=== PATIENT | female | born 1995 | race Caucasian/White ===

== ENCOUNTER 2024-01-31 21:24 | Observation (INO) | payer BC, SELFPAY ==
[2024-01-31 21:59] VITALS: BP 120/67; PULSE 95
[2024-01-31 22:01] VITALS: BP 110/70; PULSE 92
[2024-01-31 22:15] VITALS: BP 108/55; PULSE 102
[2024-01-31 22:19] VITALS: BMI 23.8
--- NOTE | 2024-01-31 22:19 | OBADM ---
This patient, Chante Negron, admitted to the OB room OB Post 115 for observation. Patient/family oriented to hospital policies and general routines including ID bracelet, bed and alarms, visiting hours, pain management, procedures, bathroom and other care routines, personal items, smoking policy, room service/diet, and visiting hours. Patient/Family are encouraged to report perceived risks to care and to ask questions if they do not understand what they are told or what they should do.
[2024-01-31 22:21] LABS: Appearance Urine Clear (Clear); Bilirubin Urine Negative (Negative); Blood Urine Negative (Negative); Color Urine Yellow (Yellow); Glucose Urine UA 2+ mg/dL (Negative); Ketones Urine Negative (Negative); Leukocyte Esterase Ur Negative LEU/UL (Negative); Nitrate Urine Negative (Negative); Protein Urine Negative (Negative); Specific Grav Ur 1.011 (1.001-1.035); Urobilinogen Urine 0.2 mg/dL (<2.0); pH Urine 6.5 (5.0-9.0)
[2024-01-31 22:22] LABS: Add Urine Microscopic? NO
[2024-01-31 22:30] VITALS: BP 106/62; PULSE 81
[2024-01-31 22:45] VITALS: BP 114/76; PULSE 92
[2024-01-31 23:03] LABS: Basophils Absolute Auto 0.1 K/mm3 (0.0-0.1); Basophils Percent Auto 0.3 % (0.2-1.2); Eosinophils Absolute Auto 0.1 K/mm3 (0-0.3); Eosinophils Percent Auto 0.5 % (0-4.4); Hematocrit 35.1 % (37.0-47.0); Hemoglobin 11.4 g/dL (12.0-15.0); Immature Granulocyte Absolute 0.06 K/mm3 (0.00-0.031); Immature Granulocyte Percent A 0.4 % (0-0.5); Lymphocytes Absolute Auto 2.25 K/mm3 (0.9-3.2); Lymphocytes Percent Auto 14.8 % (18.3-44.2); Mean Corpuscular HGB Conc 32.5 g/dl (32-36); Mean Corpuscular Hemoglobin 30.2 pg (26-34); Mean Corpuscular Volume 92.9 fl (80-100); Mean Platelet Volume 9.7 fl (7.4-10.4); Monocytes Absolute Auto 0.8 K/mm3 (0.1-0.6); Platelet Count Result 378 k/mm3 (150-375); Red Blood Count 3.78 M/mm3 (4.2-5.4); Red Cell Distribution Width 13.1 % (11.5-14.5); White Blood Count 15.2 K/mm3 (4.5-10.0)
[2024-01-31] MEDS: CYCLOBENZAPRINE HCL 10 MG TABLET PO (23:18)
--- NOTE | 2024-02-11 08:39 | P.PNOB_ITS ---
OB - Triage/Final Diagnosis Visit Information Date of evaluation: 01/31/24 Reason for evaluation: other (back pain) Comments/Additional reasons for admission: I have assessed the risk for this patient, Chante Negron, and determined that she would benefit from observation care. Evaluation Laboratory results: Laboratory Tests 01/31/24 01/31/24 22:15 22:53 WBC 15.2 H RBC 3.78 L Hgb 11.4 L Hct 35.1 L MCV 92.9 MCH 30.2 MCHC 32.5 RDW 13.1 Plt Count 378 H MPV 9.7 Immature Gran % (Auto) 0.4 Neut % (Auto) 79.0 H Lymph % (Auto) 14.[address] [place] % (Auto) 5.0 Eos % (Auto) 0.5 Baso % (Auto) 0.3 Lymph # (Auto) 2.25 [place] # (Auto) 0.8 H Eos # (Auto) 0.1 Baso # (Auto) 0.1 Abs Immat Gran (auto) 0.06 H Absolute Neuts (auto) 12.0 H Absolute Nucleated RBC 0.000 Nucleated RBC % 0.0 Urine Color Yellow Urine Appearance Clear Urine pH 6.5 Ur Specific [place] 1.011 Urine Protein Negative Urine Glucose (UA) 2+ H Urine Ketones Negative Ur Blood (Man) Negative Urine Nitrate Negative Urine Bilirubin Negative Urine Urobilinogen 0.2 Leukocyte Esterase Rfl Negative Comments: Pt evaluated on unit by RN. Plan of care discussed with CNLisa. FHTs reassuring. VSS. No evidence of active labor or ROM.
== END 2024-01-31 23:30 | disposition home or self-care (01) ==
PROVIDERS: Advanced Practice Midwife; Admitting Provider Obstetrics & Gynecology; Visit Provider Obstetrics & Gynecology
DX: O99.891 Other specified diseases and conditions complicating pregnancy (principal); M54.9 Dorsalgia, unspecified; Z3A.26 26 weeks gestation of pregnancy
CPT/HCPCS: 36415; 81003; 85025; A9270; G0378; G0379

== ENCOUNTER 2024-04-23 00:35 | Inpatient (IN) | payer BC, SELFPAY ==
[2024-04-23] VITALS (86 sets, daily range): BP systolic 61–166; BP diastolic 30–127; PULSE 64–208; RESP 14–18; TEMP 36.3–37.1; O2SAT 96–100; BMI 29.4
[2024-04-23 01:23] LABS: Basophils Absolute Auto 0.1 K/mm3 (0.0-0.1); Basophils Percent Auto 0.4 % (0.2-1.2); Eosinophils Percent Auto 0.3 % (0-4.4); Hemoglobin 11.3 g/dL (12.0-15.0); Immature Granulocyte Absolute 0.05 K/mm3 (0.00-0.031); Immature Granulocyte Percent A 0.4 % (0-0.5); Lymphocytes Absolute Auto 2.44 K/mm3 (0.9-3.2); Lymphocytes Percent Auto 17.4 % (18.3-44.2); Mean Corpuscular HGB Conc 34.2 g/dl (32-36); Mean Corpuscular Hemoglobin 30.6 pg (26-34); Mean Corpuscular Volume 89.4 fl (80-100); Mean Platelet Volume 12.3 fl (7.4-10.4); Monocytes Absolute Auto 1.1 K/mm3 (0.1-0.6); Monocytes Percent Auto 7.5 % (2.6-8.5); Neutrophils Absolute Auto 10.4 K/mm3 (1.3-6.7); Platelet Count Result 201 k/mm3 (150-375); Red Blood Count 3.69 M/mm3 (4.2-5.4); Red Cell Distribution Width 12.8 % (11.5-14.5)
--- NOTE | 2024-04-23 01:55 | LDADM ---
This patient, Chante Negron, was admitted to Labor/Delivery/Recovery 105 on 04/23/24 at 00:35. Plans for labor, pain management and were discussed with patient. Patient/family oriented to hospital policies and general routines including ID bracelet, bed and alarms, visiting hours, pain management, procedures, bathroom and other care routines, personal items, smoking policy, room service/diet and guest tray routines, security routines, and visiting hours. Patient/Family are encouraged to report perceived risks to care and to ask questions if they do not understand what they are told or what they should do. See OBIX for further documentation.
[2024-04-23 02:17] LABS: HIV 1/2 Ab P24 Ag Result Negative (Negative)
[2024-04-23 02:18] LABS: Rapid Plasma Reagin Non-Reactive (NonReactive)
--- NOTE | 2024-04-23 05:12 | PM.IMHP ---
H&P: HPI History of Present Illness Date/Time: 04/23/24 05:12 Chief Complaint: Ruptured membranes at term Narrative: 29-year-old 1 para 0 whose last menstrual pre was 07/22/2023, EDC is 05/08/2024, confirmed by 10 week ultrasound presents at 38 weeks gestation with spontaneous rupture membranes. She is negative for group B strep in her appears uncomplicated. She does state that she would like an epidural. Contractions were irregular at the moment and she is agreeable to starting Pitocin PMFSH Family History Family History Grandparent Diabetes mellitus Father Diabetes mellitus Social History Social History Smoking status: Never smoker Substance use: never Do You Feel Safe in your Home?: No Lack of Transportation: No Lack of Food: Sometimes True Current Housing: I Have Housing Concerned About Future Housing: No Difficulty Paying Gas/Electric Bills: No Difficulty Paying for Meds: No Currently Unemployed: No Education: Master's Degree or Higher Difficulty w/ Childcare or Family Care: No Spiritual care concerns: No Meds Home Medications and Allergies Home Medications Medication Instructions Recorded Confirmed Type prenat.vits,paco,hap-sctx-uwspq 1 tablet 04/10/24 History Allergies Allergy/AdvReac Type Severity Reaction Status Date / Time No Known Allergies Allergy Verified 04/23/24 03:28 Vital Signs Vital Signs - 24 hr 04/23/24 03:11 04/23/24 04:00 04/23/24 05:01 Temperature 98 F Pulse Rate 72 64 77 Blood Pressure 108/77 108/65 130/78 Oxygen Delivery 04/23/24 01:49 Temperature Pulse Rate Blood Pressure Oxygen Delivery Room Air Exam Const: General: cooperative, healthy appearing and comfortable Nutritional Appearance: average body habitus Orientation/consciousness: oriented to person, oriented to place and oriented to time Resp: Effort & Inspection: normal respiratory effort Cardio: Rate: regular rate Rhythm: regular rhythm Heart sounds: S1 normal heart sound present and S2 normal heart sound present GI: Inspection: normal to inspection ( gravid soft uterus) : External Female Exam: normal external appearance Speculum Exam - Vagina: normal appearance of the vagina Speculum Exam - Cervix: normal appearance of the cervix ( cervix 1cm. UCs irregular. FHTs reassuring) H&P: Results Labs Labs: Short CBC 04/23/24 Range/Units 01:17 WBC 14.0 H (4.5-10.0) K/mm3 Hgb 11.3 L (12.0-15.0) g/dL Hct 33.0 L (37.0-47.0) % Plt Count 201 (150-375) k/mm3 Assessment and Plan Assessment and plan (1) Term : Code(s): Z34.90 - Encounter for supervision of normal , unspecified, unspecified trimester Status: Acute (2) Spontaneous rupture of amniotic membranes: Status: Acute Plan spontaneous vaginal delivery expected. She has an epidural candidate. She is agreeable to start Pitocin
[2024-04-23] MEDS: LACTATED RINGERS 1,000 ML 125 ML IV CONT ×4 (05:22→11:01)
[2024-04-23] MEDS: OXYTOCIN 30 UNITS/NS 500 ML 30 UNITS/500 ML BAG 6 UNITS IV CONT (05:22)
--- NOTE | 2024-04-23 07:31 | WPDANESEPP ---
Anes - Eval Pre Procedure Procedure: labor epidural Date/Time: 04/23/24 07:31 Surgeon: jose Preop Diagnosis: pain during labor Pre Op Diagnosis: Leaking fluid Patient Data Age: 29 Gender: F Height: 1.57 m Weight: 73 kg Last Vital Signs Temp 36.9 C 04/23/24 06:30 Pulse 141 H 04/23/24 06:01 BP 128/70 04/23/24 06:01 O2 Del Method Room Air 04/23/24 01:49 Allergies Allergy/AdvReac Type Severity Reaction Status Date / Time No Known Allergies Allergy Verified 04/23/24 03:28 Home Medications Medication Instructions Recorded Confirmed Type prenat.vits,paco,qdu-yozr-zrcbw 1 tablet 04/10/24 History Laboratory Tests 04/23/24 01:17 WBC 14.0 H K/mm3 (4.5-10.0) RBC 3.69 L M/mm3 (4.2-5.4) Hgb 11.3 L g/dL (12.0-15.0) Hct 33.0 L % (37.0-47.0) MCV 89.4 fl (80-100) MCH 30.6 pg (26-34) MCHC 34.2 g/dl (32-36) RDW 12.8 % (11.5-14.5) Plt Count 201 k/mm3 (150-375) MPV 12.3 H fl (7.4-10.4) Immature Gran % (Auto) 0.4 % (0-0.5) Neut % (Auto) 74.0 H % (45.5-73.1) Lymph % (Auto) 17.4 L % (18.3-44.2) [place] % (Auto) 7.5 % (2.6-8.5) Eos % (Auto) 0.3 % (0-4.4) Baso % (Auto) 0.4 % (0.2-1.2) Lymph # (Auto) 2.44 K/mm3 (0.9-3.2) [place] # (Auto) 1.1 H K/mm3 (0.1-0.6) Eos # (Auto) 0.0 K/mm3 (0-0.3) Baso # (Auto) 0.1 K/mm3 (0.0-0.1) Abs Immat Gran (auto) 0.05 H K/mm3 (0.00-0.031) Absolute Neuts (auto) 10.4 H K/mm3 (1.3-6.7) Absolute Nucleated RBC 0.000 K/mm3 (0.0-0.012) Nucleated RBC % 0.0 % (0.0-0.2) RPR Non-reactive (NonReactive) HIV 1&2 Ab/P24 Ag 4thGn Negative (Negative) Blood Type O Positive Antibody Screen Negative Patient hx anesthesia problems: none Family hx anesthesia problems: none Results Review: All pre-operative results and documents have been reviewed as part of the pre-operative evaluation. [facility] Family History Family History Grandparent Diabetes mellitus Father Diabetes mellitus Social History Social History Smoking status: Never smoker Substance use: never Do You Feel Safe in your Home?: No Lack of Transportation: No Lack of Food: Sometimes True Current Housing: I Have Housing Concerned About Future Housing: No Difficulty Paying Gas/Electric Bills: No Difficulty Paying for Meds: No Currently Unemployed: No Education: Master's Degree or Higher Difficulty w/ Childcare or Family Care: No Spiritual care concerns: No Exam Day of Procedure 04/23/24 07:31
[2024-04-23] MEDS: PHENYLEPHRINE 1,000 MCG/10 ML SYRINGE 100 MCG IV PUSH (08:00)
--- NOTE | 2024-04-23 08:55 | PM.OBPNLAB ---
Pain Control Date/time seen: 04/23/24 08:55 Pain control: tolerating well and epidural Comments: bedside ultrasound reveals this baby is breech she is 6cm
--- NOTE | 2024-04-23 08:55 | WPDHPUPDATE1 ---
History and Physical Update Update Date/Time: 04/23/24 08:55 History and Physical has been reviewed, including an updated exam of the patient. There are NO changes in the patient's condition. Risks, benefits, and alternatives have been discussed and questions answered. Patient agrees to proceed with procedure.
[2024-04-23] MEDS: ACETAMINOPHEN 500 MG TABLET 1000 MG PO (09:02)
[2024-04-23] MEDS: ONDANSETRON INJ 4 MG/2 ML VIAL IV PUSH (09:03)
[2024-04-23] MEDS: FAMOTIDINE 20 MG/2 ML VIAL IV PUSH (09:03)
[2024-04-23] MEDS: AZITHROMYCIN 500 MG/NS 250 ML 500 MG/250 ML BAG 250 MG IVPB (09:15)
--- NOTE | 2024-04-23 09:54 | WPDANESEPPF ---
Anes - Initial Pre Proc Eval Procedure: Operation Date: 04/23/24 09:30 Proposed Procedures p Section - Chad Carney MD Date/Time: 04/23/24 09:54 Surgeon: Timmy Horton MD Pre Op Diagnosis: Leaking fluid Patient Data Age: 29 Gender: F Height: 1.57 m Weight: 73 kg Last Vital Signs Temp 36.9 C 04/23/24 06:30 Pulse 94 04/23/24 09:30 BP 123/53 L 04/23/24 09:45 Pulse Ox 99 04/23/24 09:51 O2 Del Method Room Air 04/23/24 01:49 Allergies Allergy/AdvReac Type Severity Reaction Status Date / Time No Known Allergies Allergy Verified 04/23/24 03:28 Home Medications Medication Instructions Recorded Confirmed Type prenat.vits,paco,ddx-puqc-jzwgy 1 tablet 04/10/24 History Laboratory Tests 04/23/24 01:17 WBC 14.0 H K/mm3 (4.5-10.0) RBC 3.69 L M/mm3 (4.2-5.4) Hgb 11.3 L g/dL (12.0-15.0) Hct 33.0 L % (37.0-47.0) MCV 89.4 fl (80-100) MCH 30.6 pg (26-34) MCHC 34.2 g/dl (32-36) RDW 12.8 % (11.5-14.5) Plt Count 201 k/mm3 (150-375) MPV 12.3 H fl (7.4-10.4) Immature Gran % (Auto) 0.4 % (0-0.5) Neut % (Auto) 74.0 H % (45.5-73.1) Lymph % (Auto) 17.4 L % (18.3-44.2) [place] % (Auto) 7.5 % (2.6-8.5) Eos % (Auto) 0.3 % (0-4.4) Baso % (Auto) 0.4 % (0.2-1.2) Lymph # (Auto) 2.44 K/mm3 (0.9-3.2) [place] # (Auto) 1.1 H K/mm3 (0.1-0.6) Eos # (Auto) 0.0 K/mm3 (0-0.3) Baso # (Auto) 0.1 K/mm3 (0.0-0.1) Abs Immat Gran (auto) 0.05 H K/mm3 (0.00-0.031) Absolute Neuts (auto) 10.4 H K/mm3 (1.3-6.7) Absolute Nucleated RBC 0.000 K/mm3 (0.0-0.012) Nucleated RBC % 0.0 % (0.0-0.2) RPR Non-reactive (NonReactive) HIV 1&2 Ab/P24 Ag 4thGn Negative (Negative) Blood Type O Positive Antibody Screen Negative Patient hx anesthesia problems: none Family hx anesthesia problems: none Results Review: All pre-operative results and documents have been reviewed as part of the pre-operative evaluation. [facility] Family History Family History Grandparent Diabetes mellitus Father Diabetes mellitus Social History Social History Smoking status: Never smoker Substance use: never Do You Feel Safe in your Home?: No Lack of Transportation: No Lack of Food: Sometimes True Current Housing: I Have Housing Concerned About Future Housing: No Difficulty Paying Gas/Electric Bills: No Difficulty Paying for Meds: No Currently Unemployed: No Education: Master's Degree or Higher Difficulty w/ Childcare or Family Care: No Spiritual care concerns: No Anes - Eval Final PreProcedure Day of Procedure 04/23/24 09:54 Patient weight: normal Heart: regular rate and rhythm Lungs: clear to auscultation Airway: Mallampati scale class II Neurological: alert and oriented Last oral intake: >/= 8 hours ASA classification: II Emergent: no Anesthetic plan: proceed Anesthesia type and monitoring: regional epidural and standard monitoring Results Review: All pre-operative results and documents have been reviewed as part of the pre-operative evaluation. Informed Consent: The patient's anesthetic plan and its attendant risks and benefits were discussed with the patient/family/POA. Questions were solicited and answers provided to the satisfaction of the patient/family/POA.
[2024-04-23] MEDS: ceFAZolin 2 GM/D5W 50 ML 2 GM/50 ML BAG IVPB (10:10)
[2024-04-23] MEDS: KETOROLAC 15 MG/ML VIAL (*BKC) IV PUSH ×3 (10:49→20:55)
--- NOTE | 2024-04-23 10:54 | W.PM.OBCSD ---
OB - Delivery Note Procedure Delivery date: 04/23/24 Pre-op diagnosis: Breech Presentation and Other (Reach) Post-op Diagnosis: Same Induction method: None Delivery monitor: External FHT and External Uterine Prior to decision for section, ACOG/SM labor guidelines were considered and discussed with the patient and staff. Decision made to proceed with the section.: Yes Procedure Performed: Primary Surgeon: Chad Carney MD Anesthesia type: Epidural Description of Procedure/Findings: patient was admitted with spontaneous rupture movement prior to admission. She was a known breech and she progressed to 1cm to 6 and the breech was noted. After obtained informed consent she was prepped draped taken to the back she had. She had previously had epidural anesthesia. Under excellent epidural anesthesia the abdomen was entered in Pfannenstiel fashion progressive layers of fascia. Fascia incised midline cured upward outward fashion bilaterally. Underlying muscles sharply dissected. Parietal peritoneum below by Elizabeth clamps and by sharp dissection carried superiorly and inferiorly to the dome of the bladder. Bladder blade placed bladder flap formed. Bladder blade returned. A low-transverse incision made the breech delivered to maternal right assure arms were delivered medially flexed and the head delivered in flexed position. Patient had cord clamped and cut and given Apgars of 8 and 8 at 1 and 5minutes. Placenta then delivered intact manually after drawn cord blood. Uterus was delivered the abdomen. After assuring no membranes remained the uterus, the uterus closed with continuous running locking 0 Vicryl from lateral edge to lateral edge. This followed by 2nd imbricating running locking 0 Vicryl from lateral edge to lateral edge. Hemostasis was assured and ovaries and tubes appeared within normal limits. The uterus returned to the abdomen. The hysterotomy incision inspected 1 last time noted be hemostatic. Laps removed and accounted for. The fascia closed with continuous running 0 Vicryl from lateral edge to lateral edge. Irrigation subcutaneous layer. The skin closed with 4 Monocryl glue. Quantitative blood loss was 345cc. All sponge, needle, instrument counts were correct. There were no immediate complications Specimen: No Estimated Blood Loss: 345 Drains: No Packing: No Pathology: None sent Complications: No immediate complications Condition: Stable Baby Date of : 04/23/24 Time of : 10:31 Gestational Age by Date: 37 gender: Male Weight (pounds): 5 Weight (ounces): 15 presentation: barry breech position: Right Sacrum Anterior Placenta delivery description: Manual Removal Cord Vessel Description: 3 Vessels score one minute: 8 score five minutes: 8
--- NOTE | 2024-04-23 10:58 | PM.DS ---
DS: Admitting Diagnosis Discharge Date 04/25/24 Admitting Diagnosis term /breech presentation DS: Discharge Diagnosis Discharge Diagnosis (1) Term : Code(s): Z34.90 - Encounter for supervision of normal , unspecified, unspecified trimester Status: Acute (2) Breech presentation: Code(s): O32.1XX0 - Maternal care for breech presentation, not applicable or unspecified Status: Acute DS: Summary Hospital Course Reason for hospitalization: patient was admitted at 38 weeks gestation with spontaneous rupture membranes at 38 weeks on 04/23/2024. Hospital Course: The patient was noted to be breech by bedside ultrasound. She is offered low-transverse section. After obtaining informed consent she was taken to the back and delivered without difficulty. Her hospital course was unremarkable. She remained afebrile. She was up, voiding without difficulty, eating a regular diet, ambulating, breast-feeding, and generally without complaints. Time Spent with Patient Time attestation: Total time spent providing and/or coordinating discharge services: Exam Const: General: cooperative, healthy appearing and comfortable Nutritional Appearance: average body habitus Orientation/consciousness: oriented to person, oriented to place and oriented to time Resp: Effort & Inspection: normal respiratory effort Cardio: Rate: regular rate Rhythm: regular rhythm Heart sounds: S1 normal heart sound present and S2 normal heart sound present GI: Inspection: normal to inspection and incision ( Wound is clean dry and intact) DS: Data Data Completed and Pending Labs on day of discharge: Labs from last 24 hours 04/23/24 01:17 WBC 14.0 H RBC 3.69 L Hgb 11.3 L Hct 33.0 L MCV 89.4 MCH 30.6 MCHC 34.2 RDW 12.8 Plt Count 201 MPV 12.3 H Immature Gran % (Auto) 0.4 Neut % (Auto) 74.0 H Lymph % (Auto) 17.4 L [place] % (Auto) 7.5 Eos % (Auto) 0.3 Baso % (Auto) 0.4 Lymph # (Auto) 2.44 [place] # (Auto) 1.1 H Eos # (Auto) 0.0 Baso # (Auto) 0.1 Abs Immat Gran (auto) 0.05 H Absolute Neuts (auto) 10.4 H Absolute Nucleated RBC 0.000 Nucleated RBC % 0.0 RPR Non-reactive HIV 1&2 Ab/P24 Ag 4thGn Negative Blood Type O Positive Antibody Screen Negative Discharge Plan Discharge Attending physician on discharge: Chad Omalley Discharging Clinician: Chad Omalley Patient Disposition: Home, Self-Care Activity: may shower, no straining and pelvic rest Diet: heart healthy Wound Care Instructions: follow printed instructions Patient Instructions: Antibiotic Form Stand Alone Forms: General Discharge Information Follow-up/Referrals: Timmy Horton MD [Physician] - Discharge Medications: New hydrocodone-acetaminophen 5-325 mg tablet 1 tablet PO Q4H PRN (Reason: pain) Qty: 30 0RF Continued #2 Tablet 1 tablet Date of admission: 04/23/24 00:35 Primary Care Provider: UNKNOWN,DOCTOR Admitting Provider: Timmy Horton Attending physician on admission: Timmy Horton Condition: Stable
[2024-04-23] MEDS: HYDROmorphone HCL INJ (*CRX) 1 MG/ML SYR 0.5 MG IV PUSH (11:55)
[2024-04-23] MEDS: OXYTOCIN 30 UNITS/NS 500 ML 30 UNITS/500 ML BAG 125 UNITS IV CONT (13:29)
--- NOTE | 2024-04-23 13:41 | OBPPTRN ---
1316-Patient transferred to post room #281 via stretcher. Support person present. Oriented to unit, room, information board, rooming in, admission packet and security measures. Patient verbalizes understanding.
[2024-04-23] MEDS: ACETAMINOPHEN 325 MG TABLET 650 MG PO ×2 (14:15→20:56)
[2024-04-23] MEDS: SIMETHICONE 80 MG TAB.CHEW PO (14:16)
[2024-04-23] MEDS: LIDOCAINE 5% PATCH 1 PATCH TRANSDERM (14:17)
--- NOTE | 2024-04-23 14:30 | PC.NURSE ---
Introductions were made, then consulted with patient to assess needs related to . Encouraged understanding of the benefits of skin to skin, stimulating with massage touch, changing positions to encourage wakefulness, how to watch for early feeding cues, responsive feeding, feeding on demand (aiming for 8-12 times in 24 hours, about every 2-3 hours), milk production, building/maintaining a milk supply, duration of feeding, signs of adequate intake/output and how to record on the feeding sheet. Reviewed positioning and ear, shoulder, hip alignment, supporting the breast to facilitate a deep latch, asymmetrical latch (off-center), leading with the chin with a big, open, wide gape and body close to mother. Infant made attempts on the left breast in football, cross cradle and laid-back position, feeding not achieved at this time. Nipple shield was utilized at this time. Infant remains unsuccessful with disoriented suck. Infant to remain skin to skin with mother. Education given to the mother of how to visualize the suckling (with good rocking jaw motion), swallows (dropping of the lower jaw) and how to listen for drinking at the breast (the ka sound). was unable to maintain latch. Reviewed comfort measures of healing with a warm, wet washcloth to rinse breast, then leave open to air-dry, good handwashing when or touching the breast/nipples to prevent infection. Mother voiced understanding of skin to skin, stimulating with massage touch, responsive feedings, hand expressed colostrum, talking to to encourage if it has been 2 -2.5 hours since the start of the last , to call if infant does not latch, or if there is discomfort with . Parents voiced understanding of information, demonstrated learning and will call if there is a request for assistance. Reported to the Primary RN.
--- NOTE | 2024-04-23 17:31 | PC.NURSE ---
Called to patients room for assistance latching infant. Unable to maintain a good latch. attempts but has poor suck and will not remain latched. Dr. Kirkland consulted regarding infants lack of feedings during life. Blood sugar taken and resulted as 31. Serum drawn resulting at 38. 1.5ml Glucose gel given with 20ml of Similac formula. Report given to RN. RN will recheck blood sugar at 17:45.
[2024-04-23] MEDS: DOCUSATE SODIUM 100 MG CAPSULE PO (17:34)
[2024-04-23] MEDS: DEXTROSE 5%/0.45% SOD CHL 1,000 ML 125 ML IV CONT (19:14)
[2024-04-24] MEDS: KCL 20 MEQ/D5/0.45% SOD CHL 1,000 ML 125 ML IV CONT (03:09)
[2024-04-24] MEDS: KETOROLAC 15 MG/ML VIAL (*BKC) IV PUSH ×2 (03:23→09:30)
[2024-04-24] MEDS: ACETAMINOPHEN 325 MG TABLET 650 MG PO ×4 (03:23→21:08)
[2024-04-24 04:02] VITALS: BP 98/59; PULSE 69; RESP 12; TEMP 36.6; O2SAT 96
--- NOTE | 2024-04-24 05:55 | PM.OBPNVD ---
OB - PN: Subj Subjective Date/time seen: 04/24/24 05:55 Patient comments: no complaints and pain well controlled baby status: doing well OB - PN: Obj Data Labs 04/23/24 01:17 OB - PN A/P Plan day: 1 Plan: routine care Time Spent With Patient Time: Total time spent is greater than 50% in coordination of care (as documented) at patient's floor/unit and/or counseling patient: Time with patient: less than 15 minutes Exam Const: General: cooperative, healthy appearing and comfortable Nutritional Appearance: average body habitus Orientation/consciousness: oriented to person, oriented to place and oriented to time HENMT: Head: normal to inspection Resp: Effort & Inspection: normal respiratory effort Cardio: Rate: regular rate Rhythm: regular rhythm Heart sounds: S1 normal heart sound present and S2 normal heart sound present GI: Inspection: normal to inspection and incision (cdi)
[2024-04-24 06:06] LABS: Basophils Percent Auto 0.2 % (0.2-1.2); Eosinophils Percent Auto 0.2 % (0-4.4); Hematocrit 31.7 % (37.0-47.0); Hemoglobin 10.5 g/dL (12.0-15.0); Immature Granulocyte Absolute 0.07 K/mm3 (0.00-0.031); Immature Granulocyte Percent A 0.4 % (0-0.5); Lymphocytes Absolute Auto 1.88 K/mm3 (0.9-3.2); Lymphocytes Percent Auto 12.1 % (18.3-44.2); Mean Corpuscular HGB Conc 33.1 g/dl (32-36); Mean Corpuscular Hemoglobin 30.7 pg (26-34); Mean Corpuscular Volume 92.7 fl (80-100); Mean Platelet Volume 12.8 fl (7.4-10.4); Monocytes Absolute Auto 1.1 K/mm3 (0.1-0.6); Monocytes Percent Auto 6.7 % (2.6-8.5); Neutrophils Absolute Auto 12.5 K/mm3 (1.3-6.7); Neutrophils Percent Auto 80.4 % (45.5-73.1); Platelet Count Result 158 k/mm3 (150-375); Red Blood Count 3.42 M/mm3 (4.2-5.4); Red Cell Distribution Width 13.1 % (11.5-14.5); White Blood Count 15.6 K/mm3 (4.5-10.0)
[2024-04-24 07:30] VITALS: BP 130/62; PULSE 78; RESP 18; TEMP 36.8; O2SAT 99
--- NOTE | 2024-04-24 08:19 | WPDANLDPN2 ---
Anes-Prog Note L&D Date/Time: 04/24/24 08:19 Comfortable throughout: labor, delivery and section Neuraxial method: epidural Epidural/Spinal procedure site: clean & non-tender Neuro status: Neuro function grossly intact. Cardiovascular status: normal Respiratory status: normal Airway patency: baseline Mental status: baseline Post-Op hydration status: normal Vital Signs: Last Vital Signs Temp 36.6 C 04/24/24 04:02 Pulse 69 04/24/24 04:02 Resp 12 04/24/24 04:02 BP 98/59 L 04/24/24 04:02 Pulse Ox 96 04/24/24 04:02 O2 Del Method Room Air 04/23/24 13:00 Pain score (VAS): 1 I/O: Intake & Output 04/23/24 04/24/24 04/24/24 23:59 07:59 15:59 Intake Total 350 Output Total 350 1675 Balance 0 -1675 Post-procedural complaints: none Patient feedback: Patient satisfied with anesthetic care.
--- NOTE | 2024-04-24 08:20 | WPDANLDNPN2 ---
Anes-Prog Note L&D-Neuraxial Date/Time: 04/24/24 08:20 Neuraxial medications: epidural PF morphine Opiod-related complaints: none Patient feedback: Patient satisfied with post-operative pain management.
[2024-04-24] MEDS: MULTIVIT/MIN/PREN/FOL AC/IRON TABLET 1 TAB PO (09:30)
[2024-04-24] MEDS: DOCUSATE SODIUM 100 MG CAPSULE PO ×2 (09:31→15:33)
[2024-04-24] MEDS: SIMETHICONE 80 MG TAB.CHEW PO ×3 (09:31→15:33)
[2024-04-24] MEDS: LIDOCAINE 5% PATCH 1 PATCH TRANSDERM (15:34)
[2024-04-24] MEDS: IBUPROFEN 600 MG TABLET PO ×2 (15:34→21:08)
[2024-04-24 20:00] VITALS: BP 125/75; PULSE 81; RESP 18; TEMP 36.4; O2SAT 98
[2024-04-24] MEDS: HYDROcodone/acetaminophen (*CRX) 5-325 MG TABLET 1 TAB PO (21:08)
[2024-04-25] MEDS: IBUPROFEN 600 MG TABLET PO ×4 (02:56→21:32)
[2024-04-25] MEDS: ACETAMINOPHEN 325 MG TABLET 650 MG PO ×4 (02:56→21:31)
--- NOTE | 2024-04-25 08:00 | PM.OBPNVD ---
OB - PN: Subj Subjective Date/time seen: 04/25/24 08:00 Patient comments: no complaints and pain well controlled baby status: doing well and nursing well OB - PN: Obj Data Labs 04/24/24 03:51 OB - PN A/P Plan day: 2 Plan: routine care, discharge home and follow up 6 weeks (4) Time Spent With Patient Time: Total time spent is greater than 50% in coordination of care (as documented) at patient's floor/unit and/or counseling patient: Time with patient: less than 15 minutes Exam Const: General: cooperative, healthy appearing and comfortable Nutritional Appearance: average body habitus Orientation/consciousness: oriented to person, oriented to place and oriented to time HENMT: Head: normal to inspection Resp: Effort & Inspection: normal respiratory effort Cardio: Rate: regular rate Rhythm: regular rhythm Heart sounds: S1 normal heart sound present and S2 normal heart sound present GI: Inspection: normal to inspection
[2024-04-25 08:15] VITALS: BP 105/77; PULSE 74; RESP 18; TEMP 36.9; O2SAT 100
[2024-04-25] MEDS: SIMETHICONE 80 MG TAB.CHEW PO ×3 (09:17→15:58)
[2024-04-25] MEDS: MULTIVIT/MIN/PREN/FOL AC/IRON TABLET 1 TAB PO (09:17)
[2024-04-25] MEDS: DOCUSATE SODIUM 100 MG CAPSULE PO ×2 (09:17→15:57)
--- NOTE | 2024-04-25 10:02 | PC.NURSE ---
Patient viewed the discharge video Mother & Baby Care, The First Two Weeks . Patient was given the opportunity and encouraged to ask questions. Patient verbalized understanding of information shared and has been given the mother/baby guide for home reference.
[2024-04-25] MEDS: HYDROcodone/acetaminophen (*CRX) 5-325 MG TABLET 1 TAB PO (12:02)
[2024-04-25] MEDS: MEASLES,MUMPS,RUBELLA VACCINE 0.5 ML VIAL SUB-Q (12:04)
[2024-04-25] MEDS: LIDOCAINE 5% PATCH 1 PATCH TRANSDERM (15:58)
[2024-04-25 18:40] VITALS: BP 131/83; PULSE 85; RESP 16; TEMP 36.6; O2SAT 99
[2024-04-26] MEDS: IBUPROFEN 600 MG TABLET PO ×2 (04:13→09:54)
[2024-04-26] MEDS: ACETAMINOPHEN 325 MG TABLET 650 MG PO ×2 (04:13→09:54)
[2024-04-26] MEDS: MULTIVIT/MIN/PREN/FOL AC/IRON TABLET 1 TAB PO (07:14)
[2024-04-26] MEDS: SIMETHICONE 80 MG TAB.CHEW PO (07:14)
[2024-04-26] MEDS: DOCUSATE SODIUM 100 MG CAPSULE PO (07:14)
[2024-04-26 07:35] VITALS: BP 114/77; PULSE 82; RESP 16; TEMP 37.1; O2SAT 99
--- NOTE | 2024-04-26 08:00 | PC.NURSE ---
Questions answered related to pump usage. Upon entering room, patient was using the breastpump. Patient was assessed for correct placement and flange size. Parents are encouraged to record the pumping schedule on the feeding sheet for follow up visit.?Mother voiced understanding of the education and states that she feels comfortable going home with independent skills using a breast pump. Reported to the Primary RN.
--- NOTE | 2024-04-26 08:46 | PM.OBPNVD ---
OB - PN: Subj Subjective Date/time seen: 04/26/24 08:46 Narrative: Pain OK. Tolerating diet. Would like to go home. OB - PN: Obj Data Labs 04/24/24 03:51 OB - PN A/P Plan day: 3 Comments: A: POD#3, doing well. P: Home to f/u 4 weeks. Exam Narrative: AVSS ABD soft, nontender, fundus firm. Incision c/d/i. EXT nontender
[2024-04-26] MEDS: HYDROcodone/acetaminophen (*CRX) 5-325 MG TABLET 1 TAB PO (09:56)
--- NOTE | 2024-04-26 11:00 | PC.NURSE ---
Rental pump taken to patients room. Paperwork and agreement for rental pump discussed and signed at this time. Patient understands that breast pump should be clean upon returning to [facility] when her rental is complete. RN updated.
[2024-04-28 10:15] VITALS: BP 125/80; PULSE 66; RESP 18; TEMP 36.7; O2SAT 100
== END 2024-04-26 11:30 | disposition home or self-care (01) | DRG 788 ==
LOC: ANHLDR 11:00 → ANHOB2 04-26 08:53 → ANHLDR 04-27 11:39 → ANHOB2 04-27 11:39
PROVIDERS: Admitting Provider Obstetrics & Gynecology; Visit Provider Obstetrics & Gynecology
PROC: 10D00Z1 Extraction of Products of Conception, Low, Open Approach (ICD-10-PCS; CPT 59514; principal; 2024-04-23 09:30)
DX: O32.1XX0 Maternal care for breech presentation, not applicable or unspecified (principal); Z37.0 Single live birth; Z3A.37 37 weeks gestation of pregnancy; O77.0 Labor and delivery complicated by meconium in amniotic fluid
CPT/HCPCS: 36415; 84112; 85025; 86592; 86703; 86850; 86900; 86901; 90710; A9270; G0432; J0456; J0690; J1170; J1885; J2175; J2274; J2371; J2405; J2590; J2795; J3480; J7120